=== PATIENT | male | born 1945 | race African-American/Black ===

== ENCOUNTER 2018-06-10 17:46 | Inpatient (IN) ==
[2018-06-10] MEDS ORDERED: cefTRIAXone 1,000 MG in SODIUM CHLORIDE 0.9% 100 ML IV STA (20:43)
[2018-06-10] MEDS ORDERED: MORPHINE 4 MG/1 ML VIAL IV STA (20:54)
[2018-06-10] MEDS ORDERED: ONDANSETRON 4 MG/2 ML VIAL IV STA (20:55)
[2018-06-10 21:01] LABS: Basophils % 0.8 % (0.0-0.8); Eosinophils % 0.3 % (0.00-10.9); Hematocrit 43.8 VOL% (42.0-52.0); Hemoglobin 13.7 GM/DL (14.0-18.0); Immature Granulocytes % 0.5 %; Immature Granulocytes Absolute 0.02 #; Lymphocytes # 0.8 10*3/uL (1.4-4.0); Lymphocytes % 19.9 % (21.2-54.2); Mean Corpuscular HGB Conc 31.3 GM/DL (32-36); Mean Corpuscular Hemoglobin 27 PG (27-34); Mean Corpuscular Volume 86.4 FL (87-102); Mean Platelet Volume 10.1 FL (9.6-12.0); Monocytes # 0.4 10*3/uL (0.11-0.8); Monocytes % 10.9 % (1.7-12.7); Neutrophils # 2.6 10*3/uL (1.4-7.4); Neutrophils % 67.6 % (38.7-73.9); Platelet Count 188 T/CUMM (130-400); Red Blood Count 5.07 MC/CUMM (3.8-5.5); White Blood Count 3.9 T/CUMM (4-12)
[2018-06-10 21:32] LABS: Albumin 4.3 G/DL (3.4-5.0); Bilirubin,Total 0.4 MG/DL (0.2-1.0); Potassium 3.5 MMOL/L (3.5-5.1); Total Protein 9.3 G/DL (6.4-8.3)
[2018-06-10] MEDS ORDERED: ZALEPLON 5 MG CAPSULE PO PRN (22:43)
[2018-06-10] MEDS ORDERED: ONDANSETRON 4 MG/2 ML VIAL IV PRN (22:43)
[2018-06-11] MEDS: ALBUTEROL/IPRATROPIUM 3 ML NEB RESP TX SCH ×4 (00:16→19:33)
[2018-06-11] MEDS ORDERED: ACETAMINOPHEN 325 MG TABLET ONE (00:23)
[2018-06-11] MEDS: ACETAMINOPHEN 325 MG TABLET PO PRN ×2 (00:38→15:40)
[2018-06-11] MEDS: ENOXAPARIN 40 MG/0.4 ML SYRINGE SUBCUT SCH ×2 (01:39→22:27)
[2018-06-11] MEDS: methylPREDNISolone SOD SUC 40 MG/1 ML VIAL IV SCH ×3 (01:39→22:29)
[2018-06-11 07:08] LABS: Basophils % 0.2 % (0.0-0.8); Hematocrit 38.7 VOL% (42.0-52.0); Immature Granulocytes % 0.9 %; Immature Granulocytes Absolute 0.04 #; Lymphocytes # 0.4 10*3/uL (1.4-4.0); Mean Corpuscular Hemoglobin 27 PG (27-34); Mean Corpuscular Volume 86.2 FL (87-102); Mean Platelet Volume 10.2 FL (9.6-12.0); Monocytes # 0.1 10*3/uL (0.11-0.8); Monocytes % 2.9 % (1.7-12.7); Neutrophils # 3.9 10*3/uL (1.4-7.4); Platelet Count 175 T/CUMM (130-400); Red Blood Count 4.49 MC/CUMM (3.8-5.5); White Blood Count 4.4 T/CUMM (4-12)
[2018-06-11 07:19] LABS: Calcium 9.2 MG/DL (8.5-10.1); Osmolality,Calculated 269.2 MOS/KG (273-304)
[2018-06-11] MEDS: PANTOPRAZOLE 40 MG TABLET PO SCH (09:59)
[2018-06-11] MEDS: guaiFENesin/DM ER 600-30 MG TABLET PO PRN (17:51)
[2018-06-11] MEDS ORDERED: cefTRIAXone 1,000 MG in SYRINGE 1 EACH IV SCH (20:00)
[2018-06-11 20:46] LABS: Total Protein 8.6 G/DL (6.4-8.3)
[2018-06-11] MEDS: BENZONATATE 100 MG CAPSULE PO SCH (20:58)
[2018-06-11] MEDS: MONTELUKAST 10 MG TABLET PO SCH (21:00)
[2018-06-11] MEDS: CLINDAMYCIN INJ 300 MG in PREMIX 1 EACH IV SCH (21:04)
[2018-06-11] MEDS: MEROPENEM 1,000 MG in SODIUM CHLORIDE 0.9% 100 ML IV SCH (21:49)
[2018-06-11 22:21] LABS: Apearance,Urine CLEAR (Clear); Bacteria,Urine Occasional /HPF (Few); Bilirubin,Urine Negative (Negative); Blood, Urine Small mg/dL (Negative); Glucose,Urine (UA) 50 mg/dL (Negative); Ketones,Urine Negative (Negative); Mucus,Urine Occasional /LPF (Occasional); Nitrite,Urine Negative (Negative); Protein,Urine Negative; RBC,Urine <1 /HPF (0-4); Urine Color Straw (Yellow); Urine Specific Gravity 1.006 (1.001-1.035); Urine Urobilinogen < 2.0 EU/DL (0.2-1.0); WBC,Urine <1 /HPF (0-6)
[2018-06-12] MEDS: ALBUTEROL/IPRATROPIUM 3 ML NEB RESP TX SCH ×4 (00:54→19:26)
[2018-06-12] MEDS: CLINDAMYCIN INJ 300 MG in PREMIX 1 EACH IV SCH ×4 (04:34→21:13)
[2018-06-12] MEDS: MEROPENEM 1,000 MG in SODIUM CHLORIDE 0.9% 100 ML IV SCH ×3 (05:12→22:20)
[2018-06-12 06:30] LABS: Hematocrit 39.6 VOL% (42.0-52.0); Hemoglobin 12.3 GM/DL (14.0-18.0); Immature Granulocytes % 0.7 %; Immature Granulocytes Absolute 0.04 #; Lymphocytes # 0.5 10*3/uL (1.4-4.0); Lymphocytes % 9.4 % (21.2-54.2); Mean Corpuscular HGB Conc 31.1 GM/DL (32-36); Mean Corpuscular Hemoglobin 27 PG (27-34); Mean Corpuscular Volume 86.8 FL (87-102); Mean Platelet Volume 10.5 FL (9.6-12.0); Monocytes # 0.2 10*3/uL (0.11-0.8); Monocytes % 4.4 % (1.7-12.7); Neutrophils # 4.6 10*3/uL (1.4-7.4); Neutrophils % 85.5 % (38.7-73.9); Platelet Count 183 T/CUMM (130-400); Red Blood Count 4.56 MC/CUMM (3.8-5.5); Red Cell Distribution Width 15.2 % (9.3-17.3); White Blood Count 5.4 T/CUMM (4-12)
[2018-06-12 06:44] LABS: Total Protein (Chem) 8.6 G/DL (6.4-8.3)
[2018-06-12 06:45] LABS: Immunoglobulin A (Chem) 427 MG/DL (70-400); Immunoglobulin G (Chem) 1840 MG/DL (700-1600); Immunoglobulin M (Chem) 64 MG/DL (40-230)
[2018-06-12 06:54] LABS: % Iron Saturation 18.1 % (18-50)
[2018-06-12 07:03] LABS: Albumin 3.4 G/DL (3.4-5.0); Bilirubin,Total 0.4 MG/DL (0.2-1.0); Calcium 9.1 MG/DL (8.5-10.1); Osmolality,Calculated 276.7 MOS/KG (273-304); Potassium 4.7 MMOL/L (3.5-5.1)
[2018-06-12 07:04] LABS: Folate 8.2 NG/ML (5.4-24.0)
[2018-06-12] MEDS: BENZONATATE 100 MG CAPSULE PO SCH ×3 (08:00→21:11)
[2018-06-12] MEDS: MONTELUKAST 10 MG TABLET PO SCH ×2 (08:00→21:11)
[2018-06-12] MEDS: PANTOPRAZOLE 40 MG TABLET PO SCH (08:00)
[2018-06-12 10:10] LABS: Albumin (SPE) 4.6 G/DL (3.2-5.3); Albumin (SPE) Rel % 53.1 %; Alpha 1 (SPE) 0.3 G/DL (0.1-0.4); Alpha 1 (SPE) Rel % 3.1 %; Alpha 2 (SPE) Rel % 11.6 %; Beta (SPE) 0.9 G/DL (0.5-1.1); Beta (SPE) Rel % 10.6 %; Gamma (SPE) 1.9 G/DL (0.7-1.7); Gamma (SPE) Rel % 21.6 %
[2018-06-12] MEDS: methylPREDNISolone SOD SUC 40 MG/1 ML VIAL IV SCH ×2 (14:39→22:20)
[2018-06-12 16:41] LABS: INR 0.9; PT Patient Result 9.8 SECS
[2018-06-12] MEDS ORDERED: MAGNESIUM HYDROXIDE SUSP 30 ML UDCUP PO ONE (16:52)
[2018-06-12] MEDS: ACETAMINOPHEN 325 MG TABLET PO PRN (21:12)
[2018-06-12] MEDS: ENOXAPARIN 40 MG/0.4 ML SYRINGE SUBCUT SCH (22:19)
[2018-06-13] MEDS: ALBUTEROL/IPRATROPIUM 3 ML NEB RESP TX SCH ×4 (00:51→19:56)
[2018-06-13] MEDS: CLINDAMYCIN INJ 300 MG in PREMIX 1 EACH IV SCH ×4 (03:14→20:22)
[2018-06-13] MEDS: MEROPENEM 1,000 MG in SODIUM CHLORIDE 0.9% 100 ML IV SCH ×3 (05:00→21:05)
[2018-06-13] MEDS: BENZONATATE 100 MG CAPSULE PO SCH ×3 (08:07→20:23)
[2018-06-13] MEDS: MONTELUKAST 10 MG TABLET PO SCH ×2 (08:07→20:22)
[2018-06-13] MEDS: PANTOPRAZOLE 40 MG TABLET PO SCH (08:07)
[2018-06-13] MEDS: POLYETHYLENE GLYCOL POWDER 17 GM PACK PO SCH (08:07)
[2018-06-13] MEDS ORDERED: PHENOL 1.4% THROAT SPRAY 177 ML BOTTLE PO PRN (10:39)
[2018-06-13] MEDS: methylPREDNISolone SOD SUC 40 MG/1 ML VIAL IV SCH ×2 (11:14→22:48)
[2018-06-13] MEDS: ACETAMINOPHEN 325 MG TABLET PO PRN (15:15)
[2018-06-13] MEDS: ENOXAPARIN 40 MG/0.4 ML SYRINGE SUBCUT SCH (22:48)
[2018-06-14] MEDS: ALBUTEROL/IPRATROPIUM 3 ML NEB RESP TX SCH ×4 (00:20→20:00)
[2018-06-14] MEDS: CLINDAMYCIN INJ 300 MG in PREMIX 1 EACH IV SCH ×4 (02:28→22:05)
[2018-06-14] MEDS: MEROPENEM 1,000 MG in SODIUM CHLORIDE 0.9% 100 ML IV SCH ×3 (05:42→22:47)
[2018-06-14] MEDS: BENZONATATE 100 MG CAPSULE PO SCH ×3 (08:32→22:03)
[2018-06-14] MEDS: POLYETHYLENE GLYCOL POWDER 17 GM PACK PO SCH (08:32)
[2018-06-14] MEDS: MONTELUKAST 10 MG TABLET PO SCH ×2 (08:32→22:02)
[2018-06-14] MEDS: PANTOPRAZOLE 40 MG TABLET PO SCH (08:32)
[2018-06-14] MEDS: methylPREDNISolone SOD SUC 40 MG/1 ML VIAL IV SCH ×2 (11:32→22:04)
[2018-06-14] MEDS ORDERED: LACTULOSE 20 GM/30 ML UDCUP PO PRN (12:56)
[2018-06-14] MEDS: amLODIPine 5 MG TABLET PO SCH (13:45)
[2018-06-14] MEDS: guaiFENesin/DM ER 600-30 MG TABLET PO PRN (17:33)
[2018-06-14 19:33] LABS: Total Protein 24 Hr Ur Result 187 MG/24HR (0-149.1); Total Volume,Urine 1700 ML (400-2000)
[2018-06-14] MEDS: ENOXAPARIN 40 MG/0.4 ML SYRINGE SUBCUT SCH (22:04)
[2018-06-15] MEDS: ALBUTEROL/IPRATROPIUM 3 ML NEB RESP TX SCH ×4 (01:04→19:13)
[2018-06-15] MEDS: CLINDAMYCIN INJ 300 MG in PREMIX 1 EACH IV SCH ×4 (03:08→20:43)
[2018-06-15] MEDS: MEROPENEM 1,000 MG in SODIUM CHLORIDE 0.9% 100 ML IV SCH ×3 (04:58→20:42)
[2018-06-15] MEDS: MONTELUKAST 10 MG TABLET PO SCH ×2 (09:01→20:41)
[2018-06-15] MEDS: POLYETHYLENE GLYCOL POWDER 17 GM PACK PO SCH (09:01)
[2018-06-15] MEDS: PANTOPRAZOLE 40 MG TABLET PO SCH (09:01)
[2018-06-15] MEDS: BENZONATATE 100 MG CAPSULE PO SCH ×3 (09:02→20:42)
[2018-06-15] MEDS: amLODIPine 5 MG TABLET PO SCH (09:02)
[2018-06-15] MEDS ORDERED: amLODIPine 5 MG TABLET PO ONE (10:32)
[2018-06-15] MEDS: methylPREDNISolone SOD SUC 40 MG/1 ML VIAL IV SCH ×2 (11:34→22:47)
[2018-06-15] MEDS: ENOXAPARIN 40 MG/0.4 ML SYRINGE SUBCUT SCH (22:49)
[2018-06-16] MEDS: ALBUTEROL/IPRATROPIUM 3 ML NEB RESP TX SCH ×4 (00:32→20:02)
[2018-06-16] MEDS: CLINDAMYCIN INJ 300 MG in PREMIX 1 EACH IV SCH ×4 (03:35→20:05)
[2018-06-16] MEDS: MEROPENEM 1,000 MG in SODIUM CHLORIDE 0.9% 100 ML IV SCH ×3 (04:59→20:06)
[2018-06-16 05:54] LABS: Basophils % 0.3 % (0.0-0.8); Hematocrit 38.9 VOL% (42.0-52.0); Immature Granulocytes % 3.7 %; Immature Granulocytes Absolute 0.27 #; Lymphocytes # 1.4 10*3/uL (1.4-4.0); Lymphocytes % 18.3 % (21.2-54.2); Mean Corpuscular HGB Conc 30.8 GM/DL (32-36); Mean Corpuscular Hemoglobin 27 PG (27-34); Mean Corpuscular Volume 86.6 FL (87-102); Mean Platelet Volume 10.2 FL (9.6-12.0); Monocytes # 0.7 10*3/uL (0.11-0.8); Monocytes % 9.7 % (1.7-12.7); Platelet Count 225 T/CUMM (130-400); Red Blood Count 4.49 MC/CUMM (3.8-5.5); Red Cell Distribution Width 15.7 % (9.3-17.3); White Blood Count 7.4 T/CUMM (4-12)
[2018-06-16 05:59] LABS: INR 0.9; Partial Thromboplastin Time 22.9 SECS (0-40)
[2018-06-16 06:24] LABS: Lymphocytes 16 % (20-55); Platelet Estimate Normal; Polychromasia Few; Segmented Neutrophils 83 % (50-85); Total Cells Counted 100
[2018-06-16 07:50] LABS: 24 Hr Protein (Bench) 187 MG/24HR (0-149.1)
[2018-06-16] MEDS ORDERED: BENZONATATE 100 MG CAPSULE PO ONE (08:30)
[2018-06-16] MEDS ORDERED: MEPERIDINE 50 MG/1 ML VIAL IM ONE (08:30)
[2018-06-16] MEDS ORDERED: diphenhydrAMINE 50 MG/1 ML VIAL IM ONE (08:30)
[2018-06-16] MEDS ORDERED: LIDOCAINE 2% 20 ML VIAL RESP TX ONE (09:00)
[2018-06-16] MEDS ORDERED: LIDOCAINE 1% 20 ML VIAL MISC INJ ONE (09:00)
[2018-06-16] MEDS ORDERED: LIDOCAINE 2% VISCOUS 100 ML BOTTLE SWISH/SPIT ONE (09:00)
[2018-06-16] MEDS ORDERED: EPINEPHrine 1 MG/ML VIAL ET ONE (10:25)
[2018-06-16] MEDS ORDERED: EPINEPHrine 1 MG/ML VIAL ONE (10:54)
[2018-06-16] MEDS: methylPREDNISolone SOD SUC 40 MG/1 ML VIAL IV SCH ×2 (13:20→23:09)
[2018-06-16] MEDS: BENZONATATE 100 MG CAPSULE PO SCH ×3 (13:22→20:03)
[2018-06-16] MEDS: POLYETHYLENE GLYCOL POWDER 17 GM PACK PO SCH (13:22)
[2018-06-16] MEDS: guaiFENesin/DM ER 600-30 MG TABLET PO PRN (13:22)
[2018-06-16] MEDS: MONTELUKAST 10 MG TABLET PO SCH ×2 (13:22→20:03)
[2018-06-16] MEDS: PANTOPRAZOLE 40 MG TABLET PO SCH (13:22)
[2018-06-16] MEDS: amLODIPine 5 MG TABLET PO SCH (13:22)
[2018-06-16] MEDS: ENOXAPARIN 40 MG/0.4 ML SYRINGE SUBCUT SCH (23:08)
[2018-06-17] MEDS: ALBUTEROL/IPRATROPIUM 3 ML NEB RESP TX SCH ×4 (00:43→19:37)
[2018-06-17] MEDS: CLINDAMYCIN INJ 300 MG in PREMIX 1 EACH IV SCH ×4 (02:51→20:19)
[2018-06-17] MEDS: MEROPENEM 1,000 MG in SODIUM CHLORIDE 0.9% 100 ML IV SCH ×3 (05:08→20:56)
[2018-06-17] MEDS: POLYETHYLENE GLYCOL POWDER 17 GM PACK PO SCH (08:41)
[2018-06-17] MEDS: BENZONATATE 100 MG CAPSULE PO SCH ×3 (08:41→20:16)
[2018-06-17] MEDS: MONTELUKAST 10 MG TABLET PO SCH ×2 (08:41→20:16)
[2018-06-17] MEDS: amLODIPine 5 MG TABLET PO SCH (08:42)
[2018-06-17] MEDS: ACETAMINOPHEN 325 MG TABLET PO PRN (08:42)
[2018-06-17] MEDS: PANTOPRAZOLE 40 MG TABLET PO SCH (08:42)
[2018-06-17] MEDS: methylPREDNISolone SOD SUC 40 MG/1 ML VIAL IV SCH ×2 (12:02→23:00)
[2018-06-17] MEDS: ENOXAPARIN 40 MG/0.4 ML SYRINGE SUBCUT SCH (23:00)
[2018-06-18] MEDS: ALBUTEROL/IPRATROPIUM 3 ML NEB RESP TX SCH ×2 (00:50→07:26)
[2018-06-18] MEDS: CLINDAMYCIN INJ 300 MG in PREMIX 1 EACH IV SCH ×2 (04:05→09:15)
[2018-06-18] MEDS: MEROPENEM 1,000 MG in SODIUM CHLORIDE 0.9% 100 ML IV SCH (04:36)
[2018-06-18 05:27] LABS: Basophils % 0.3 % (0.0-0.8); Hemoglobin 12.8 GM/DL (14.0-18.0); Immature Granulocytes % 5.3 %; Lymphocytes # 0.9 10*3/uL (1.4-4.0); Lymphocytes % 9.6 % (21.2-54.2); Mean Corpuscular HGB Conc 31.2 GM/DL (32-36); Mean Corpuscular Hemoglobin 27 PG (27-34); Mean Corpuscular Volume 86.1 FL (87-102); Mean Platelet Volume 10.3 FL (9.6-12.0); Monocytes # 0.7 10*3/uL (0.11-0.8); Monocytes % 6.8 % (1.7-12.7); Neutrophils # 7.4 10*3/uL (1.4-7.4); Platelet Count 294 T/CUMM (130-400); Red Blood Count 4.76 MC/CUMM (3.8-5.5); Red Cell Distribution Width 15.9 % (9.3-17.3); White Blood Count 9.5 T/CUMM (4-12)
[2018-06-18 05:48] LABS: Osmolality,Calculated 277.1 MOS/KG (273-304); Potassium 4.7 MMOL/L (3.5-5.1)
[2018-06-18 06:01] LABS: Band Neutrophils 1 % (0-10); Hypochromasia 1+; Lymphocytes 8 % (20-55); Segmented Neutrophils 82 % (50-85); Total Cells Counted 100
[2018-06-18 06:02] LABS: Microcytosis 1+
[2018-06-18] MEDS: BENZONATATE 100 MG CAPSULE PO SCH (09:15)
[2018-06-18] MEDS: POLYETHYLENE GLYCOL POWDER 17 GM PACK PO SCH (09:15)
[2018-06-18] MEDS: MONTELUKAST 10 MG TABLET PO SCH (09:15)
[2018-06-18] MEDS: amLODIPine 5 MG TABLET PO SCH (09:15)
[2018-06-18] MEDS: PANTOPRAZOLE 40 MG TABLET PO SCH (09:15)
[2018-06-18 11:43] VITALS: BP 150/90
[2018-06-18] MEDS: methylPREDNISolone SOD SUC 40 MG/1 ML VIAL IV SCH (11:52)
== END 2018-06-18 12:45 | disposition home or self-care (01) | DRG 166 ==
LOC: N.ED 17:46 → N.EDINP 17:46 → N.5E 06-11 13:09 → SUATTDRO 06-12 14:18
PROVIDERS: ADMIT Internal Medicine; ATTEND Internal Medicine

== ENCOUNTER 2019-01-21 02:32 | Inpatient (IN) ==
[2019-01-21] MEDS ORDERED: SODIUM CHLORIDE 0.9% 500 ML IV STA (02:42)
[2019-01-21] MEDS ORDERED: DILTIAZEM 50 MG/10 ML VIAL IV STA ×2 (02:43→02:59)
[2019-01-21 03:03] LABS: Basophils # 0.1 10*3/uL (0.0-0.2); Basophils % 0.6 % (0.0-0.8); Eosinophils # 0.1 10*3/uL (0.0-0.87); Eosinophils % 1.3 % (0.00-10.9); Hematocrit 44.2 VOL% (42.0-52.0); Hemoglobin 14.3 GM/DL (14.0-18.0); Immature Granulocytes % 0.5 %; Immature Granulocytes Absolute 0.04 #; Lymphocytes # 0.8 10*3/uL (1.4-4.0); Lymphocytes % 9.8 % (21.2-54.2); Mean Corpuscular HGB Conc 32.4 GM/DL (32-36); Mean Corpuscular Volume 82.9 FL (87-102); Monocytes % 6.9 % (1.7-12.7); Neutrophils % 80.9 % (38.7-73.9); Platelet Count 273 T/CUMM (130-400); Red Blood Count 5.33 MC/CUMM (3.8-5.5); Red Cell Distribution Width 14.9 % (9.3-17.3); White Blood Count 7.9 T/CUMM (4-12)
[2019-01-21 03:07] LABS: PT Patient Result 11.3 SECS (9.6-12.2)
[2019-01-21 03:14] LABS: Albumin 3.3 G/DL (3.4-5.0); Bilirubin,Total 0.4 MG/DL (0.2-1.0); Calcium 8.7 MG/DL (8.5-10.1); Osmolality,Calculated 276.8 MOS/KG (273-304); Total Protein 7.4 G/DL (6.4-8.3)
[2019-01-21] MEDS ORDERED: SODIUM CHLORIDE 0.9% 1,000 ML IV STA (03:18)
[2019-01-21] MEDS ORDERED: METOPROLOL TARTRATE 5 MG/5 ML VIAL IV STA (03:34)
[2019-01-21] MEDS ORDERED: cefTRIAXone 1,000 MG in SODIUM CHLORIDE 0.9% 100 ML IV STA (04:20)
[2019-01-21 04:30] LABS: Apearance,Urine CLEAR (Clear); Bacteria,Urine Occasional /HPF (Few); Bilirubin,Urine Negative (Negative); Blood, Urine Negative (Negative); Glucose,Urine (UA) Negative (Negative); Hyaline Casts,Urine 1 /LPF (0-3); Ketones,Urine Negative (Negative); Mucus,Urine Few /LPF (Occasional); Nitrite,Urine Negative (Negative); Protein,Urine 30 MG/DL; RBC,Urine <1 /HPF (0-4); Squamous Epithelial Cell,Urine Occasional /HPF (0-10); Urine Color Yellow (Yellow); WBC,Urine <1 /HPF (0-6)
[2019-01-21] MEDS ORDERED: ALBUTEROL 2.5 MG/3 ML NEB RESP TX PRN (05:54)
[2019-01-21] MEDS ORDERED: ONDANSETRON 4 MG/2 ML VIAL IV PRN (05:54)
[2019-01-21] MEDS ORDERED: GLUCAGON 1 MG VIAL IM PRN (06:21)
[2019-01-21] MEDS ORDERED: DEXTROSE 50% 25 GM/50 ML VIAL IV PRN (06:21)
[2019-01-21] MEDS: methylPREDNISolone SOD SUC 40 MG/1 ML VIAL IV SCH ×3 (06:40→21:24)
[2019-01-21] MEDS ORDERED: INFLUENZA VIRUS VACCINE 0.5 ML SYRINGE IM ONE (06:43)
[2019-01-21] MEDS: LEVALBUTEROL 1.25 MG/3 ML NEB RESP TX SCH ×3 (07:10→19:11)
[2019-01-21] MEDS: INSULIN REGULAR 100 UNIT/ML SUBCUT SCH ×4 (08:49→21:23)
[2019-01-21] MEDS: PANTOPRAZOLE 40 MG TABLET PO SCH (08:50)
[2019-01-21] MEDS: ENOXAPARIN 40 MG/0.4 ML SYRINGE SUBCUT SCH (08:50)
[2019-01-21] MEDS: AZITHROMYCIN INJ 500 MG in SODIUM CHLORIDE 0.9% 250 ML IV SCH (08:50)
[2019-01-21] MEDS ORDERED: PANTOPRAZOLE 40 MG TABLET PO SCH (09:00)
[2019-01-21] MEDS: CLINDAMYCIN INJ 300 MG in PREMIX 1 EACH IV SCH ×3 (12:31→23:25)
[2019-01-21] MEDS ORDERED: MAGNESIUM SULF RIDER 2 GM in PREMIX 1 EACH IV ONE (15:15)
[2019-01-21] MEDS ORDERED: POTASSIUM CHLORIDE 20 MEQ TABLET PO ONE (15:15)
[2019-01-21] MEDS: ASPIRIN EC 81 MG TABLET PO SCH (15:44)
[2019-01-21] MEDS: ACETYLCYSTEINE 20% 800 MG/4 ML VIAL RESP TX SCH ×2 (16:06→19:15)
[2019-01-21] MEDS: DILTIAZEM 30 MG TABLET PO SCH (21:21)
[2019-01-21] MEDS: MONTELUKAST 10 MG TABLET PO SCH (21:22)
[2019-01-22] MEDS: LEVALBUTEROL 1.25 MG/3 ML NEB RESP TX SCH ×4 (00:22→19:37)
[2019-01-22] MEDS: ACETYLCYSTEINE 20% 800 MG/4 ML VIAL RESP TX SCH ×4 (00:22→19:37)
[2019-01-22] MEDS ORDERED: LEVALBUTEROL 1.25 MG/3 ML NEB RESP TX PRN (02:00)
[2019-01-22] MEDS: CLINDAMYCIN INJ 300 MG in PREMIX 1 EACH IV SCH ×4 (04:57→21:41)
[2019-01-22 05:14] LABS: Basophils % 0.1 % (0.0-0.8); Hematocrit 45.1 VOL% (42.0-52.0); Hemoglobin 14.6 GM/DL (14.0-18.0); Immature Granulocytes % 0.8 %; Immature Granulocytes Absolute 0.12 #; Lymphocytes # 0.6 10*3/uL (1.4-4.0); Lymphocytes % 3.9 % (21.2-54.2); Mean Corpuscular HGB Conc 32.4 GM/DL (32-36); Mean Corpuscular Volume 83.5 FL (87-102); Mean Platelet Volume 9.3 FL (9.6-12.0); Monocytes % 4.8 % (1.7-12.7); Neutrophils % 90.4 % (38.7-73.9); Platelet Count 321 T/CUMM (130-400); Red Cell Distribution Width 14.8 % (9.3-17.3); White Blood Count 14.9 T/CUMM (4-12)
[2019-01-22] MEDS: methylPREDNISolone SOD SUC 40 MG/1 ML VIAL IV SCH ×3 (05:36→21:41)
[2019-01-22] MEDS: cefTRIAXone 1,000 MG in SYRINGE 1 EACH IV SCH (05:40)
[2019-01-22 06:02] LABS: Albumin 3.2 G/DL (3.4-5.0); Bilirubin,Total 0.4 MG/DL (0.2-1.0); Calcium 9.9 MG/DL (8.5-10.1); Osmolality,Calculated 285.3 MOS/KG (273-304)
[2019-01-22 06:46] LABS: Band Neutrophils 1 % (0-10); Lymphocytes 2 % (20-55); Segmented Neutrophils 93 % (50-85); Total Cells Counted 100
[2019-01-22 06:50] LABS: Hypochromasia 1+; Microcytosis 1+
[2019-01-22 06:51] LABS: Platelet Estimate Normal
[2019-01-22] MEDS: INSULIN REGULAR 100 UNIT/ML SUBCUT SCH ×4 (08:14→20:38)
[2019-01-22] MEDS: DILTIAZEM 30 MG TABLET PO SCH ×3 (09:13→20:38)
[2019-01-22] MEDS: ENOXAPARIN 40 MG/0.4 ML SYRINGE SUBCUT SCH (09:13)
[2019-01-22] MEDS: AZITHROMYCIN INJ 500 MG in SODIUM CHLORIDE 0.9% 250 ML IV SCH (09:13)
[2019-01-22] MEDS: PANTOPRAZOLE 40 MG TABLET PO SCH (09:14)
[2019-01-22] MEDS: MONTELUKAST 10 MG TABLET PO SCH ×2 (09:14→20:38)
[2019-01-22] MEDS: ASPIRIN EC 81 MG TABLET PO SCH (09:14)
[2019-01-22] MEDS ORDERED: VANCOMYCIN INJ 1,000 MG in SODIUM CHLORIDE 0.9% 250 ML IV SCH (14:30)
[2019-01-22] MEDS: VANCOMYCIN INJ 1,250 MG in SODIUM CHLORIDE 0.9% 250 ML IV SCH (14:57)
[2019-01-22] MEDS: ACETAMINOPHEN 325 MG TABLET PO PRN (14:58)
[2019-01-22] MEDS: ALBUTEROL 2 MG TABLET PO SCH (21:41)
[2019-01-23] MEDS: ACETYLCYSTEINE 20% 800 MG/4 ML VIAL RESP TX SCH ×4 (01:00→19:07)
[2019-01-23] MEDS: LEVALBUTEROL 1.25 MG/3 ML NEB RESP TX SCH ×4 (01:00→19:07)
[2019-01-23] MEDS: VANCOMYCIN INJ 1,250 MG in SODIUM CHLORIDE 0.9% 250 ML IV SCH ×2 (02:09→16:30)
[2019-01-23] MEDS: CLINDAMYCIN INJ 300 MG in PREMIX 1 EACH IV SCH ×4 (04:24→21:38)
[2019-01-23] MEDS: ALBUTEROL 2 MG TABLET PO SCH ×3 (05:00→21:33)
[2019-01-23] MEDS: methylPREDNISolone SOD SUC 40 MG/1 ML VIAL IV SCH ×3 (05:01→21:33)
[2019-01-23] MEDS: cefTRIAXone 1,000 MG in SYRINGE 1 EACH IV SCH (05:01)
[2019-01-23] MEDS: INSULIN REGULAR 100 UNIT/ML SUBCUT SCH ×4 (08:20→20:11)
[2019-01-23] MEDS: MONTELUKAST 10 MG TABLET PO SCH ×2 (08:21→21:33)
[2019-01-23] MEDS: DILTIAZEM 30 MG TABLET PO SCH ×3 (08:21→21:32)
[2019-01-23] MEDS: ASPIRIN EC 81 MG TABLET PO SCH (08:21)
[2019-01-23] MEDS: PANTOPRAZOLE 40 MG TABLET PO SCH (08:21)
[2019-01-23] MEDS: ENOXAPARIN 40 MG/0.4 ML SYRINGE SUBCUT SCH (08:21)
[2019-01-23] MEDS ORDERED: AZITHROMYCIN 250 MG TABLET PO SCH (09:00)
[2019-01-23] MEDS: LEVOFLOXACIN INJ 750 MG in PREMIX 1 EACH IV SCH (22:45)
[2019-01-24] MEDS: ACETYLCYSTEINE 20% 800 MG/4 ML VIAL RESP TX SCH ×4 (00:09→19:23)
[2019-01-24] MEDS: LEVALBUTEROL 1.25 MG/3 ML NEB RESP TX SCH ×4 (00:10→19:23)
[2019-01-24] MEDS: MEROPENEM 1,000 MG in SODIUM CHLORIDE 0.9% 100 ML IV SCH ×4 (00:20→23:01)
[2019-01-24] MEDS: VANCOMYCIN INJ 1,250 MG in SODIUM CHLORIDE 0.9% 250 ML IV SCH ×3 (02:34→17:52)
[2019-01-24] MEDS: methylPREDNISolone SOD SUC 40 MG/1 ML VIAL IV SCH ×3 (05:29→21:27)
[2019-01-24] MEDS: ALBUTEROL 2 MG TABLET PO SCH ×3 (05:29→21:24)
[2019-01-24 06:01] LABS: Basophils % 0.1 % (0.0-0.8); Hemoglobin 12.5 GM/DL (14.0-18.0); Immature Granulocytes Absolute 0.24 #; Lymphocytes # 0.6 10*3/uL (1.4-4.0); Mean Corpuscular HGB Conc 32.1 GM/DL (32-36); Mean Corpuscular Volume 84.1 FL (87-102); Mean Platelet Volume 9.1 FL (9.6-12.0); Monocytes % 4.5 % (1.7-12.7); NRBC # 0.02 10*3/uL; Neutrophils % 88.4 % (38.7-73.9); Platelet Count 288 T/CUMM (130-400); Red Blood Count 4.64 MC/CUMM (3.8-5.5); Red Cell Distribution Width 15.3 % (9.3-17.3); White Blood Count 11.8 T/CUMM (4-12)
[2019-01-24 06:28] LABS: Calcium 8.5 MG/DL (8.5-10.1); Osmolality,Calculated 283.4 MOS/KG (273-304)
[2019-01-24] MEDS: ENOXAPARIN 40 MG/0.4 ML SYRINGE SUBCUT SCH (08:47)
[2019-01-24] MEDS: PANTOPRAZOLE 40 MG TABLET PO SCH (08:47)
[2019-01-24] MEDS: ASPIRIN EC 81 MG TABLET PO SCH (08:47)
[2019-01-24] MEDS: MONTELUKAST 10 MG TABLET PO SCH ×2 (08:47→20:26)
[2019-01-24] MEDS: DILTIAZEM 30 MG TABLET PO SCH ×3 (08:47→20:26)
[2019-01-24] MEDS: INSULIN REGULAR 100 UNIT/ML SUBCUT SCH ×4 (08:48→21:21)
[2019-01-24] MEDS: LEVOFLOXACIN INJ 750 MG in PREMIX 1 EACH IV SCH (21:33)
[2019-01-25] MEDS: LEVALBUTEROL 1.25 MG/3 ML NEB RESP TX SCH ×4 (00:05→19:15)
[2019-01-25] MEDS: ACETYLCYSTEINE 20% 800 MG/4 ML VIAL RESP TX SCH ×4 (00:05→19:15)
[2019-01-25] MEDS: VANCOMYCIN INJ 1,250 MG in SODIUM CHLORIDE 0.9% 250 ML IV SCH (06:27)
[2019-01-25] MEDS: ALBUTEROL 2 MG TABLET PO SCH ×3 (06:27→21:36)
[2019-01-25] MEDS: methylPREDNISolone SOD SUC 40 MG/1 ML VIAL IV SCH ×3 (06:34→21:35)
[2019-01-25] MEDS ORDERED: MEROPENEM 500 MG in SODIUM CHLORIDE 0.9% 100 ML IV SCH (08:00)
[2019-01-25] MEDS: DILTIAZEM 30 MG TABLET PO SCH ×2 (09:38→17:30)
[2019-01-25] MEDS: ASPIRIN EC 81 MG TABLET PO SCH (09:38)
[2019-01-25] MEDS: ENOXAPARIN 40 MG/0.4 ML SYRINGE SUBCUT SCH (09:38)
[2019-01-25] MEDS: MONTELUKAST 10 MG TABLET PO SCH ×2 (09:39→21:36)
[2019-01-25] MEDS: INSULIN REGULAR 100 UNIT/ML SUBCUT SCH ×4 (09:39→22:03)
[2019-01-25] MEDS: PANTOPRAZOLE 40 MG TABLET PO SCH (09:39)
[2019-01-25] MEDS ORDERED: DILTIAZEM 30 MG TABLET PO ONE (21:00)
[2019-01-25] MEDS: LEVOFLOXACIN INJ 750 MG in PREMIX 1 EACH IV SCH (21:37)
[2019-01-26] MEDS: LEVALBUTEROL 1.25 MG/3 ML NEB RESP TX SCH ×4 (00:39→18:47)
[2019-01-26] MEDS: ACETYLCYSTEINE 20% 800 MG/4 ML VIAL RESP TX SCH ×4 (00:39→18:47)
[2019-01-26 04:42] LABS: Basophils % 0.3 % (0.0-0.8); Hematocrit 39.5 VOL% (42.0-52.0); Hemoglobin 12.7 GM/DL (14.0-18.0); Immature Granulocytes % 4.2 %; Immature Granulocytes Absolute 0.47 #; Lymphocytes # 0.5 10*3/uL (1.4-4.0); Lymphocytes % 4.8 % (21.2-54.2); Mean Corpuscular HGB Conc 32.2 GM/DL (32-36); Mean Corpuscular Volume 84.8 FL (87-102); Mean Platelet Volume 9.6 FL (9.6-12.0); Monocytes % 6.1 % (1.7-12.7); NRBC # 0.04 10*3/uL; Neutrophils % 84.6 % (38.7-73.9); Platelet Count 303 T/CUMM (130-400); Red Blood Count 4.66 MC/CUMM (3.8-5.5); Red Cell Distribution Width 15.3 % (9.3-17.3); White Blood Count 11.3 T/CUMM (4-12)
[2019-01-26 05:03] LABS: Hypochromasia 1+; Lymphocytes 11 % (20-55); Platelet Estimate Adequate; Segmented Neutrophils 86 % (50-85); Total Cells Counted 100
[2019-01-26 05:04] LABS: Microcytosis Slight
[2019-01-26 05:20] LABS: Calcium 8.4 MG/DL (8.5-10.1); Osmolality,Calculated 284.3 MOS/KG (273-304)
[2019-01-26] MEDS: ALBUTEROL 2 MG TABLET PO SCH ×3 (05:30→21:51)
[2019-01-26] MEDS: methylPREDNISolone SOD SUC 40 MG/1 ML VIAL IV SCH (05:30)
[2019-01-26] MEDS: DILTIAZEM CD 120 MG CAPSULE PO SCH (09:25)
[2019-01-26] MEDS: ASPIRIN EC 81 MG TABLET PO SCH (09:25)
[2019-01-26] MEDS: PANTOPRAZOLE 40 MG TABLET PO SCH (09:28)
[2019-01-26] MEDS: MONTELUKAST 10 MG TABLET PO SCH ×2 (09:28→21:51)
[2019-01-26] MEDS: ENOXAPARIN 40 MG/0.4 ML SYRINGE SUBCUT SCH (09:29)
[2019-01-26] MEDS: FLUCONAZOLE 200 MG TABLET PO SCH (12:53)
[2019-01-26] MEDS: INSULIN REGULAR 100 UNIT/ML SUBCUT SCH ×4 (12:57→20:26)
[2019-01-26] MEDS: cefTRIAXone 2,000 MG in SYRINGE 1 EACH IV SCH (13:04)
[2019-01-26] MEDS: predniSONE 20 MG TABLET PO SCH (21:51)
[2019-01-27] MEDS: LEVALBUTEROL 1.25 MG/3 ML NEB RESP TX SCH ×4 (00:21→19:22)
[2019-01-27] MEDS: ACETYLCYSTEINE 20% 800 MG/4 ML VIAL RESP TX SCH ×4 (00:21→19:22)
[2019-01-27 04:57] LABS: Basophils % 0.3 % (0.0-0.8); Hematocrit 40.6 VOL% (42.0-52.0); Hemoglobin 12.8 GM/DL (14.0-18.0); Immature Granulocytes % 5.8 %; Immature Granulocytes Absolute 0.67 #; Lymphocytes # 0.6 10*3/uL (1.4-4.0); Lymphocytes % 5.3 % (21.2-54.2); Mean Corpuscular HGB Conc 31.5 GM/DL (32-36); Mean Platelet Volume 9.2 FL (9.6-12.0); Monocytes % 9.9 % (1.7-12.7); NRBC # 0.02 10*3/uL; Neutrophils % 78.7 % (38.7-73.9); Platelet Count 288 T/CUMM (130-400); Red Blood Count 4.72 MC/CUMM (3.8-5.5); Red Cell Distribution Width 15.5 % (9.3-17.3); White Blood Count 11.6 T/CUMM (4-12)
[2019-01-27 05:17] LABS: Calcium 8.6 MG/DL (8.5-10.1); Osmolality,Calculated 294.7 MOS/KG (273-304)
[2019-01-27 05:21] LABS: Hypochromasia 1+; Lymphocytes 9 % (20-55); Microcytosis Slight; Nucleated Red Blood Cells 1 (0-5); Ovalocytes Slight; Platelet Estimate Adequate; Segmented Neutrophils 84 % (50-85); Total Cells Counted 100
[2019-01-27] MEDS: ALBUTEROL 2 MG TABLET PO SCH (06:07)
[2019-01-27] MEDS: predniSONE 20 MG TABLET PO SCH ×2 (08:16→20:59)
[2019-01-27] MEDS: PANTOPRAZOLE 40 MG TABLET PO SCH (08:16)
[2019-01-27] MEDS: ENOXAPARIN 40 MG/0.4 ML SYRINGE SUBCUT SCH (08:16)
[2019-01-27] MEDS: ASPIRIN EC 81 MG TABLET PO SCH (08:16)
[2019-01-27] MEDS: MONTELUKAST 10 MG TABLET PO SCH ×2 (08:16→20:59)
[2019-01-27] MEDS: cefTRIAXone 2,000 MG in SYRINGE 1 EACH IV SCH ×2 (08:17→09:33)
[2019-01-27] MEDS: DILTIAZEM CD 120 MG CAPSULE PO SCH (08:17)
[2019-01-27] MEDS: INSULIN REGULAR 100 UNIT/ML SUBCUT SCH ×4 (08:17→21:01)
[2019-01-27] MEDS: FLUCONAZOLE 200 MG TABLET PO SCH (08:17)
[2019-01-27] MEDS: ACETAMINOPHEN 325 MG TABLET PO PRN (10:54)
[2019-01-28] MEDS: ACETYLCYSTEINE 20% 800 MG/4 ML VIAL RESP TX SCH ×4 (00:33→19:31)
[2019-01-28] MEDS: LEVALBUTEROL 1.25 MG/3 ML NEB RESP TX SCH ×4 (00:33→19:31)
[2019-01-28 06:09] LABS: PT Patient Result 10.7 SECS (9.6-12.2); Partial Thromboplastin Time 22.6 SECS (20.8-36.0)
[2019-01-28 06:11] LABS: Basophils % 0.5 % (0.0-0.8); Hematocrit 40.1 VOL% (42.0-52.0); Hemoglobin 12.9 GM/DL (14.0-18.0); Immature Granulocytes % 7.1 %; Lymphocytes # 0.7 10*3/uL (1.4-4.0); Lymphocytes % 7.9 % (21.2-54.2); Mean Corpuscular HGB Conc 32.2 GM/DL (32-36); Mean Corpuscular Volume 84.2 FL (87-102); Monocytes % 8.9 % (1.7-12.7); Neutrophils % 75.6 % (38.7-73.9); Platelet Count 259 T/CUMM (130-400); Red Blood Count 4.76 MC/CUMM (3.8-5.5); Red Cell Distribution Width 15.8 % (9.3-17.3); White Blood Count 8.5 T/CUMM (4-12)
[2019-01-28 06:35] LABS: Lymphocytes 14 % (20-55); Segmented Neutrophils 74 % (50-85); Total Cells Counted 100
[2019-01-28 06:36] LABS: Hypochromasia 1+; Microcytosis Slight; Platelet Estimate Adequate
[2019-01-28] MEDS ORDERED: diphenhydrAMINE 50 MG/1 ML VIAL IM ONE (08:30)
[2019-01-28] MEDS: INSULIN REGULAR 100 UNIT/ML SUBCUT SCH ×4 (08:30→20:43)
[2019-01-28] MEDS ORDERED: BENZONATATE 100 MG CAPSULE PO ONE (08:30)
[2019-01-28] MEDS ORDERED: MEPERIDINE 50 MG/1 ML VIAL IM ONE (08:30)
[2019-01-28] MEDS: DILTIAZEM CD 120 MG CAPSULE PO SCH (08:59)
[2019-01-28] MEDS ORDERED: LIDOCAINE 1% 20 ML VIAL MISC INJ ONE (09:00)
[2019-01-28] MEDS ORDERED: LIDOCAINE 2% 20 ML VIAL RESP TX ONE (09:00)
[2019-01-28] MEDS ORDERED: LIDOCAINE 2% VISCOUS 100 ML BOTTLE SWISH/SPIT ONE (09:00)
[2019-01-28] MEDS: ALBUTEROL 2 MG TABLET PO SCH ×2 (12:05→14:57)
[2019-01-28] MEDS: PANTOPRAZOLE 40 MG TABLET PO SCH (12:07)
[2019-01-28] MEDS: FLUCONAZOLE 200 MG TABLET PO SCH (12:08)
[2019-01-28] MEDS: predniSONE 20 MG TABLET PO SCH ×2 (12:08→20:42)
[2019-01-28] MEDS: MONTELUKAST 10 MG TABLET PO SCH ×2 (12:08→20:42)
[2019-01-28] MEDS: cefTRIAXone 2,000 MG in SYRINGE 1 EACH IV SCH (12:08)
[2019-01-28] MEDS: ASPIRIN EC 81 MG TABLET PO SCH (12:08)
[2019-01-29] MEDS: LEVALBUTEROL 1.25 MG/3 ML NEB RESP TX SCH ×4 (00:18→19:45)
[2019-01-29] MEDS: ACETYLCYSTEINE 20% 800 MG/4 ML VIAL RESP TX SCH ×4 (00:19→19:45)
[2019-01-29 05:52] LABS: Basophils % 0.4 % (0.0-0.8); Hematocrit 42.9 VOL% (42.0-52.0); Hemoglobin 13.8 GM/DL (14.0-18.0); Immature Granulocytes % 7.3 %; Immature Granulocytes Absolute 0.49 #; Lymphocytes # 0.7 10*3/uL (1.4-4.0); Lymphocytes % 9.8 % (21.2-54.2); Mean Corpuscular HGB Conc 32.2 GM/DL (32-36); Mean Platelet Volume 9.3 FL (9.6-12.0); Monocytes % 8.1 % (1.7-12.7); Neutrophils % 74.4 % (38.7-73.9); Platelet Count 273 T/CUMM (130-400); Red Blood Count 5.11 MC/CUMM (3.8-5.5); Red Cell Distribution Width 15.9 % (9.3-17.3); White Blood Count 6.8 T/CUMM (4-12)
[2019-01-29 06:10] LABS: Calcium 8.3 MG/DL (8.5-10.1); Osmolality,Calculated 283.5 MOS/KG (273-304)
[2019-01-29 06:26] LABS: Lymphocytes 12 % (20-55); Platelet Estimate Normal; Polychromasia Few; Segmented Neutrophils 86 % (50-85); Total Cells Counted 100
[2019-01-29] MEDS: INSULIN REGULAR 100 UNIT/ML SUBCUT SCH ×4 (08:59→21:00)
[2019-01-29] MEDS: DILTIAZEM CD 120 MG CAPSULE PO SCH (09:34)
[2019-01-29] MEDS: ASPIRIN EC 81 MG TABLET PO SCH (09:35)
[2019-01-29] MEDS: predniSONE 20 MG TABLET PO SCH ×2 (09:35→20:41)
[2019-01-29] MEDS: FLUCONAZOLE 200 MG TABLET PO SCH (09:35)
[2019-01-29] MEDS: PANTOPRAZOLE 40 MG TABLET PO SCH (09:36)
[2019-01-29] MEDS: MONTELUKAST 10 MG TABLET PO SCH ×2 (09:36→20:41)
[2019-01-29] MEDS: cefTRIAXone 2,000 MG in SYRINGE 1 EACH IV SCH (13:34)
[2019-01-29] MEDS: ALBUTEROL 2 MG TABLET PO SCH (16:50)
[2019-01-30] MEDS: ACETYLCYSTEINE 20% 800 MG/4 ML VIAL RESP TX SCH ×4 (00:15→20:27)
[2019-01-30] MEDS: LEVALBUTEROL 1.25 MG/3 ML NEB RESP TX SCH ×4 (00:15→20:27)
[2019-01-30] MEDS: ASPIRIN EC 81 MG TABLET PO SCH (10:48)
[2019-01-30] MEDS: MONTELUKAST 10 MG TABLET PO SCH ×2 (10:48→21:35)
[2019-01-30] MEDS: DILTIAZEM CD 120 MG CAPSULE PO SCH (10:48)
[2019-01-30] MEDS: PANTOPRAZOLE 40 MG TABLET PO SCH (10:49)
[2019-01-30] MEDS: predniSONE 20 MG TABLET PO SCH ×2 (10:49→21:35)
[2019-01-30] MEDS: cefTRIAXone 2,000 MG in SYRINGE 1 EACH IV SCH (10:49)
[2019-01-30] MEDS: FLUCONAZOLE 200 MG TABLET PO SCH (10:49)
[2019-01-30] MEDS: ALBUTEROL 2 MG TABLET PO SCH ×4 (15:40→21:35)
[2019-01-30] MEDS: INSULIN REGULAR 100 UNIT/ML SUBCUT SCH ×3 (16:57→21:05)
[2019-01-31] MEDS: LEVALBUTEROL 1.25 MG/3 ML NEB RESP TX SCH ×4 (02:39→19:54)
[2019-01-31] MEDS: ACETYLCYSTEINE 20% 800 MG/4 ML VIAL RESP TX SCH ×4 (02:39→19:54)
[2019-01-31] MEDS: ALBUTEROL 2 MG TABLET PO SCH ×2 (06:24→14:38)
[2019-01-31] MEDS: INSULIN REGULAR 100 UNIT/ML SUBCUT SCH ×4 (07:17→20:26)
[2019-01-31] MEDS: predniSONE 20 MG TABLET PO SCH ×2 (08:33→20:21)
[2019-01-31] MEDS: DILTIAZEM CD 120 MG CAPSULE PO SCH (08:33)
[2019-01-31] MEDS: PANTOPRAZOLE 40 MG TABLET PO SCH (08:33)
[2019-01-31] MEDS: MONTELUKAST 10 MG TABLET PO SCH ×2 (08:33→20:21)
[2019-01-31] MEDS: ASPIRIN EC 81 MG TABLET PO SCH (08:34)
[2019-01-31] MEDS: cefTRIAXone 2,000 MG in SYRINGE 1 EACH IV SCH (08:34)
[2019-01-31] MEDS: FLUCONAZOLE 200 MG TABLET PO SCH (08:34)
[2019-02-01] MEDS: ACETYLCYSTEINE 20% 800 MG/4 ML VIAL RESP TX SCH ×4 (00:30→20:26)
[2019-02-01] MEDS: LEVALBUTEROL 1.25 MG/3 ML NEB RESP TX SCH ×4 (00:30→20:26)
[2019-02-01 05:18] LABS: Basophils % 0.3 % (0.0-0.8); Hematocrit 44.4 VOL% (42.0-52.0); Hemoglobin 14.2 GM/DL (14.0-18.0); Immature Granulocytes % 4.8 %; Immature Granulocytes Absolute 0.44 #; Lymphocytes # 0.8 10*3/uL (1.4-4.0); Lymphocytes % 8.6 % (21.2-54.2); Mean Corpuscular Volume 84.6 FL (87-102); Mean Platelet Volume 9.4 FL (9.6-12.0); Monocytes % 5.9 % (1.7-12.7); Neutrophils % 80.4 % (38.7-73.9); Platelet Count 249 T/CUMM (130-400); Red Blood Count 5.25 MC/CUMM (3.8-5.5); White Blood Count 9.1 T/CUMM (4-12)
[2019-02-01 05:35] LABS: Calcium 8.9 MG/DL (8.5-10.1); Osmolality,Calculated 284.3 MOS/KG (273-304)
[2019-02-01] MEDS: predniSONE 20 MG TABLET PO SCH ×2 (08:04→21:40)
[2019-02-01] MEDS: MONTELUKAST 10 MG TABLET PO SCH ×2 (08:04→21:40)
[2019-02-01] MEDS: ASPIRIN EC 81 MG TABLET PO SCH (08:04)
[2019-02-01] MEDS: PANTOPRAZOLE 40 MG TABLET PO SCH (08:04)
[2019-02-01] MEDS: FLUCONAZOLE 200 MG TABLET PO SCH (08:04)
[2019-02-01] MEDS: DILTIAZEM CD 120 MG CAPSULE PO SCH (08:05)
[2019-02-01] MEDS: INSULIN REGULAR 100 UNIT/ML SUBCUT SCH ×4 (08:21→21:40)
[2019-02-01] MEDS: cefTRIAXone 2,000 MG in SYRINGE 1 EACH IV SCH (08:39)
[2019-02-01] MEDS: ALBUTEROL 2 MG TABLET PO SCH ×3 (21:40→21:41)
[2019-02-02] MEDS: LEVALBUTEROL 1.25 MG/3 ML NEB RESP TX SCH ×2 (00:20→07:06)
[2019-02-02] MEDS: ACETYLCYSTEINE 20% 800 MG/4 ML VIAL RESP TX SCH ×2 (00:20→07:06)
[2019-02-02 03:36] LABS: Basophils % 0.3 % (0.0-0.8); Eosinophils % 0.4 % (0.00-10.9); Hematocrit 44.2 VOL% (42.0-52.0); Hemoglobin 14.1 GM/DL (14.0-18.0); Immature Granulocytes % 4.7 %; Immature Granulocytes Absolute 0.42 #; Lymphocytes # 0.7 10*3/uL (1.4-4.0); Mean Corpuscular HGB Conc 31.9 GM/DL (32-36); Mean Corpuscular Volume 84.4 FL (87-102); Mean Platelet Volume 9.5 FL (9.6-12.0); Monocytes % 8.2 % (1.7-12.7); Neutrophils % 78.4 % (38.7-73.9); Platelet Count 244 T/CUMM (130-400); Red Blood Count 5.24 MC/CUMM (3.8-5.5); Red Cell Distribution Width 16.4 % (9.3-17.3); White Blood Count 8.9 T/CUMM (4-12)
[2019-02-02 03:38] LABS: Calcium 8.3 MG/DL (8.5-10.1); Osmolality,Calculated 284.5 MOS/KG (273-304)
[2019-02-02] MEDS: ALBUTEROL 2 MG TABLET PO SCH (06:03)
[2019-02-02] MEDS: INSULIN REGULAR 100 UNIT/ML SUBCUT SCH ×2 (07:57→11:15)
[2019-02-02] MEDS: PANTOPRAZOLE 40 MG TABLET PO SCH (08:00)
[2019-02-02] MEDS: FLUCONAZOLE 200 MG TABLET PO SCH (08:00)
[2019-02-02] MEDS: DILTIAZEM CD 120 MG CAPSULE PO SCH (08:00)
[2019-02-02] MEDS: ASPIRIN EC 81 MG TABLET PO SCH (08:00)
[2019-02-02] MEDS: MONTELUKAST 10 MG TABLET PO SCH (08:00)
[2019-02-02] MEDS: predniSONE 20 MG TABLET PO SCH (08:00)
[2019-02-02] MEDS: cefTRIAXone 2,000 MG in SYRINGE 1 EACH IV SCH (09:18)
[2019-02-02 12:00] VITALS: BP 125/90
== END 2019-02-02 13:50 | disposition home health service (06) | DRG 193 ==
LOC: EDBD → EDUNIT# → N.ED 02:32 → SUATTDRO 05:55 → N.EDINP 05:55 → N.ICU 06:17 → N.5E 18:28 → N.ICU 01-29 17:13
PROVIDERS: ADMIT Internal Medicine; ATTEND Internal Medicine